=== PATIENT | male | born 1950 | race Caucasian/White ===

== ENCOUNTER 2020-11-01 06:12 | Day surgery (SDC) | payer MEDICARE, OTHER ==
[2020-11-01] MEDS ORDERED: ceFAZolin 2 GM in Premix Bag 1 BAG IV ONE (06:30)
[2020-11-01] MEDS ORDERED: metroNIDAZOLE/Normal Saline 500 MG in Premix Bag 1 BAG IV ONE (06:30)
[2020-11-01] MEDS ORDERED: Sodium Chloride 0.9% 1,000 ML IV SCH (06:30)
[2020-11-01] MEDS ORDERED: Lidocaine 1% with EPINEPHrine 1:100,000 50 ML MDV ONE (06:31)
[2020-11-01] MEDS ORDERED: Bupivacaine 0.5% 50 ML MDV ONE (06:31)
[2020-11-01] MEDS ORDERED: fentaNYL 250 MCG/5 ML SDV ONE (07:14)
[2020-11-01] MEDS ORDERED: Succinylcholine 200 MG/10 ML MDV ONE (07:15)
[2020-11-01] MEDS ORDERED: Glycopyrrolate 0.2 MG/ML 5 ML MDV ONE (07:15)
[2020-11-01] MEDS ORDERED: Dexamethasone 4 MG/ML SDV ONE (07:15)
[2020-11-01] MEDS ORDERED: Propofol 200 MG/20 ML SDV ONE (07:15)
[2020-11-01] MEDS ORDERED: Neostigmine Methylsulfate 1 MG/ML 5 ML Syringe ONE (07:15)
[2020-11-01] MEDS ORDERED: Rocuronium 50 MG/5 ML Vial ONE (07:15)
[2020-11-01] MEDS ORDERED: Ondansetron 4 MG/2 ML SDV ONE (07:15)
[2020-11-01] MEDS ORDERED: Acetaminophen/HYDROcodone 325-5 MG Tab PO ONE (10:14)
--- NOTE | 2020-11-01 11:32 | OR ---
DATE OF PROCEDURE: 11/01/2020 SURGEON: Eddie Trevizo MD PROCEDURE: Bilateral total extraperitoneal hernia repairs. COMPLICATIONS: None. CILNICAL SCIENTIST: None. ANESTHETIC: General. RISKS: Risks, benefits, alternatives, and limitations including, but not limited to, infection, bleeding, perforation, false positives and false negatives were explained to the patient and he wished to proceed. We also discussed hernia recurrence, my experience with the procedure, testicular injury and loss, and other risks not listed here were explained to the patient along with the possibility of open surgery and they wished to proceed. PROCEDURE IN DETAIL: The patient was placed in supine position. An infraumbilical midline incision was made. This was carried down with electrocautery to the external oblique aponeurosis. This was opened with electrocautery. The rectus muscles identified and spread creating a preperitoneal space. The balloon was then introduced and subsequently insufflated. Bilateral balloon was then held at insufflation for approximately 1 minute. This was then removed and the preperitoneal space was insufflated. Three additional 5 mm ports were advanced under direct visualization. The hernia itself bilaterally was densely scarred, especially on the right side. Blunt dissection performed. The sac was eventually removed. The patient is known to have 2 large cord lipomas. These were able to be reduced. The mesh was then cut and placed directly over this with overlap of the pubic symphysis bilaterally affecting 1 cm each side. The air was removed as the mesh was held in place. The fascia closed with #1 Vicryl. The wounds were closed with 3-0 Vicryl and 4-0 Vicryl interrupted running fashion. Dermabond was applied. The patient tolerated the procedure well. Eddie Trevizo MD /[id number]
--- NOTE | 2020-11-01 11:32 | OR ---
DATE OF PROCEDURE: 11/01/2020 SURGEON: Eddie Trevizo MD PROCEDURES: 1. Transversus abdominis plane block bilaterally. 2. Bilateral rectus sheath blocks. COMPLICATIONS: None. EXPANDER MACHINE OPERATOR: None. RISKS: Risks, benefits, alternatives, and limitations including but not limited to infection, bleeding, and injury to abdominal structures were explained to the patient. They wished to proceed. PROCEDURE IN DETAIL: The patient was placed in supine position. The left transversus plane was identified first. 20% of solution was injected under direct visualization using ultrasound guidance with a 13 megahertz probe via 21-gauge needle. This was performed on the other side also under direct visualization. Bilateral rectus sheaths were also injected under direct visualization with 20% respectively each. At no point was the needle blindly advanced. At no point was the needle advanced past the peritoneum. The patient tolerated the procedure well. Eddie Trevizo MD /[id number]
== END 2020-11-01 11:20 | disposition home or self-care (01) ==
LOC: JP.SDS 06:12
PROVIDERS: ATTEND Surgery
DX: K40.20 Bilateral inguinal hernia, without obstruction or gangrene, not specified as recurrent (principal); D17.6 Benign lipomatous neoplasm of spermatic cord; G47.33 Obstructive sleep apnea (adult) (pediatric); I10 Essential (primary) hypertension; J45.909 Unspecified asthma, uncomplicated; Z88.5 Allergy status to narcotic agent
CPT/HCPCS: 49650; A9270; J0171; J0330; J0690; J1100; J2405; J2704; J2710; J2795; J3010; J3490; J7030; C1727; C1781

== ENCOUNTER 2022-07-20 08:29 | Day surgery (SDC) | payer MEDICARE, OTHER ==
[~2022-07-20 08:29] MED LIST: Lactated Ringers 1,000 ML IV SCH; ceFAZolin 2 GM in Premix Bag 1 BAG IV ONE
[2022-07-20] MEDS ORDERED: Lactated Ringers 1,000 ML IV SCH (09:00)
[2022-07-20] MEDS ORDERED: fentaNYL 50 MCG/ML SDV ONE (09:07)
[2022-07-20] MEDS ORDERED: Propofol 200 MG/20 ML SDV ONE ×2 (09:07→11:05)
[2022-07-20] MEDS ORDERED: Midazolam 1 MG/ML 2 ML SDV ONE (09:07)
== END 2022-07-20 12:25 | disposition home or self-care (01) ==
LOC: JP.SDS 08:29
PROVIDERS: ATTEND Student in an Organized Health Care Education/Training Program
DX: Z12.11 Encounter for screening for malignant neoplasm of colon (principal); D12.0 Benign neoplasm of cecum; D12.5 Benign neoplasm of sigmoid colon; K57.30 Diverticulosis of large intestine without perforation or abscess without bleeding; I10 Essential (primary) hypertension; I25.10 Atherosclerotic heart disease of native coronary artery without angina pectoris; G47.33 Obstructive sleep apnea (adult) (pediatric); E66.01 Morbid (severe) obesity due to excess calories; R73.03 Prediabetes; Z68.43 Body mass index [BMI] 50.0-59.9, adult; Z88.5 Allergy status to narcotic agent; Z79.899 Other long term (current) drug therapy; Z91.040 Latex allergy status
CPT/HCPCS: 45385; 88305; J2250; J2704; J3010; J7120

== ENCOUNTER 2022-11-05 09:08 | Day surgery (SDC) | payer MEDICARE, OTHER ==
[~2022-11-05 09:08] MED LIST changes: -Lactated Ringers 1,000 ML IV SCH; +Sodium Chloride 0.9% 10 ML Syringe FLUSH PRN; -ceFAZolin 2 GM in Premix Bag 1 BAG IV ONE
== END 2022-11-05 10:36 | disposition home or self-care (01) ==
LOC: JP.SDS 09:08
PROVIDERS: ATTEND Ophthalmology
DX: H26.9 Unspecified cataract (principal); I10 Essential (primary) hypertension; E78.5 Hyperlipidemia, unspecified; I25.10 Atherosclerotic heart disease of native coronary artery without angina pectoris; E66.01 Morbid (severe) obesity due to excess calories; R73.03 Prediabetes; Z68.42 Body mass index [BMI] 45.0-49.9, adult; Z88.5 Allergy status to narcotic agent; Z91.040 Latex allergy status
CPT/HCPCS: 66984; J3490

== ENCOUNTER 2022-11-19 08:30 | Day surgery (SDC) | payer MEDICARE, OTHER ==
[2022-11-19] MEDS ORDERED: Sodium Chloride 0.9% 10 ML Syringe FLUSH PRN (10:05)
== END 2022-11-19 09:50 | disposition home or self-care (01) ==
LOC: JP.SDS 08:30
PROVIDERS: ATTEND Ophthalmology
DX: H26.9 Unspecified cataract (principal); G47.33 Obstructive sleep apnea (adult) (pediatric); I25.10 Atherosclerotic heart disease of native coronary artery without angina pectoris; I10 Essential (primary) hypertension; E66.9 Obesity, unspecified; Z88.5 Allergy status to narcotic agent; Z88.8 Allergy status to other drugs, medicaments and biological substances; Z68.42 Body mass index [BMI] 45.0-49.9, adult
CPT/HCPCS: 66984; J3490